=== PATIENT | male | born 1950 | race Caucasian/White ===

== ENCOUNTER 2024-06-27 09:33 | Outpatient (AMB) | payer MEDICARE, SELFPAY ==
--- NOTE | 2024-06-27 10:01 | HO.SPINEOV ---
Vital Signs 06/27/24 10:02 Height 5 ft 3 in Weight 148 lb BMI 26.2 Intake Visit Reasons: Low back pain. Intake Note: Ms. Schmitt is here today c/o low back pain. 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 She is a pleasant 73-year-old female who comes in today with a chief complaint of low back pain and difficulties with ambulation. She reports that 5 years ago she had surgery with Dr. Davidson at [facility] to address this but never had complete relief of symptoms. Her most recent MRI showed continued nerve compression at the fusion site and a broken screw at L5, alongside what sound like some older compression fractures, prompting a referral to neurosurgery by her PCP office. When describing her low back pain she reports that it is exactly the same as it has been (baseline) since she recovered from her surgery with Dr. Davidson. She reports that overall she got some mild relief from her back pain after surgery with Dr. Davidson, but overall was not satisfied with the amount of relief postoperatively. She states that she has no shooting pains down her lower extremities, and is primarily suffering from low back pain. When describing the pain she runs her hands across her low back. She reports that her pain is worse with standing and ambulation, and better with sitting or lying flat. She denies any numbness/tingling in her lower extremities. She denies any issues with bowel/bladder control. She has been taking occasional ibuprofen/Tylenol to help alleviate the pain, but states she is not taking any other prescription medications to help with the pain and at this time. She has been to physical therapy acutely right after her previous fusion surgery, but has not been back since. She did obtain cortisone injections prior to her fusion surgery, and has not attempted any since. She has been attempting to utilize [id number] medications including Tylenol/ibuprofen without significant relief of her symptoms. PMH: Type 2 diabetes, obstructive sleep apnea, hypothyroidism, hyperlipidemia, osteoporosis, peripheral neuropathy. Hx of L3-5 lumabr [address] Davidson[address] Social hx: The patient does not smoke, reports no substance use. Medications: Atorvastatin, calcium carbonate, vitamin D3, vaginal estrogen cream, vitamin B12, docusate, Humalog, glargine, levothyroxine. Allergies: Adhesive used on Dexcom 7 sensors Physical exam: The patient has 5/5 strength in her upper and lower extremities. She ambulates slowly without any assistive devices. She is able to get up onto the examination table with some difficulty. She has no significant sensational deficits on examination. Her reflexes are 1+ hypoactive in the left patella, and 2+ elsewhere. (-) bilateral straight leg raise, (-) Hightower's, (-) clonus. Imaging review: MRI of the lumbar spine shows severe degeneration of the lumbar spine. There is a notable degenerative levoscoliosis with the apex at L2. There is a healed compression fracture at L2. There is what appears to be a healed compression fracture at L5 with instrumentation noted. 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 Some notable bilateral foraminal stenosis at L5-S1. Impression: Pleasant 73-year-old female who comes in today for evaluation of longstanding low back pain which has continued despite attempted L3-5 lumbar fusion completed by [facility] neurosurgery. She asked several different issues occurring simultaneously in her lumbar spine. She has been appears to be an adjacent segment issue above the fusion construct at L2-3. She has a compression fracture that is healing at L2, which would make extension of fusion potentially problematic. Alongside this train of thought; she has osteoporosis which would make instrumentation very difficult, and put her at risk for pseudoarthrosis. She also has a degenerative levoscoliosis extending from the lumbar spine into the thoracic. This is less likely to be a major pain contributor for her. She also has a broken L5 screws noted on images obtained at her primary care office (I was not able to see this on her rayus imaging, and it is not mentioned in her MRI report, however this is something that would traditionally be difficult to identify on MRI due to metallic artifact). Unfortunately, I do not believe there is anything that we could offer Marion at this time to help with her well localized low back pain that has been persistent since her fusion surgery with [facility]. I do believe that she should be evaluated again by Dr. Davidson who need to make a decision on whether or not the broken instrumentation that he put in should be removed. Many times in the context of broken instrumentation 2 years after fusion surgery, the instrumentation does not need to be removed unless it is causing some kind of localized pain to that area. 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 Without improvement of her osteoporosis and would be very difficult to address the adjacent segment degeneration at L2-3. This patient would also benefit from a course of physical therapy. I extensively explained all this to the patient utilizing the spine models in office. At the end of this visit she was encouraged that she is welcome to come back to see us for subsequent follow-up in the future if she continues to worsen and begins treatment for her osteoporosis. Thank you for allowing us to care for your patient. The total time spent with this visit with this patient was 65 minutes reviewing history, physical exam, MRI imaging review, and implementation of treatment plan or further diagnostic testing Omari Zazueta MD,PhD [facility] Coding Level of Care Code New Pt Level 5 (50428) Diagnoses Degenerative scoliosis M41.50
[2024-06-27 10:02] VITALS: BMI 26.2
== END 2024-06-27 10:47 | disposition home or self-care (01) ==
LOC: HO.HNS 09:34
PROVIDERS: PCP Physician Assistant Surgical; Referring Provider Physician Assistant Surgical; Visit Provider Physician Assistant
DX: M54.50 Low back pain, unspecified (principal); M41.50 Other secondary scoliosis, site unspecified
CPT/HCPCS: 99205

== ENCOUNTER → 2024-06-27 09:33 | Outpatient (BNVA) | payer MEDICARE, SELFPAY | PROVIDERS: PCP Physician Assistant Surgical; Visit Provider Physician Assistant | DX: M54.50 Low back pain, unspecified (principal); M41.50 Other secondary scoliosis, site unspecified | CPT/HCPCS: 99202 ==

== ENCOUNTER 2024-07-22 10:02 | Emergency (ER) | payer MEDICARE, SELFPAY ==
[2024-07-22] VITALS (7 sets, daily range): BP systolic 117–143; BP diastolic 48–68; PULSE 85–103; RESP 12–16; TEMP 36.2–36.6; O2SAT 98–100; BMI 24.7
--- NOTE | ~2024-07-22 | CT_ITS ---
EXAMINATION: CT HEAD WITHOUT CONTRAST CLINICAL INFORMATION: Syncope. COMPARISON: None available. TECHNIQUE: Contiguous axial imaging was performed from the skull base to vertex without intravenous administration of contrast. This CT examination was performed using dose optimization techniques as appropriate, variously including the following: *Automated exposure control *Adjustment of mA and/or kV according to patient size (this includes techniques or standardized protocols for targeted exams where dose is matched to indication/reason for exam; i.e. extremities or head) *Use of iterative reconstruction technique FINDINGS: . There is no evidence of intracranial hemorrhage or extra-axial fluid collection. There is no mass effect, or edema. No CT evidence of acute territorial infarct. Ventricles, sulci, and cisterns are normal in size and configuration for patient age. No hydrocephalus. No midline shift. Negative hyperdense MCA sign. Negative insular ribbon sign. No significant white matter abnormalities. Normal pituitary. Mild atheromatous calcification of the bilateral carotid siphons and V4 segments vertebral arteries bilaterally. Globes and orbital contents image normally. No extracranial soft tissue abnormalities. The paranasal sinuses, mastoid air cells, and tympanic cavities are normally aerated. No suspicious bony abnormalities. There are no acute fractures evident. CT/CT head/brain wo IV con IMPRESSION: No acute intracranial abnormality. No fracture evident. Electronically signed by: Aric Castellanos MD 07/22/2024 12:42 PM EDT
--- NOTE | ~2024-07-22 | CT_ITS ---
EXAMINATION: CT ANGIOGRAM CHEST CLINICAL INFORMATION: Syncope, concern for PE. COMPARISON: None available. TECHNIQUE: Multiple axial images were obtained through the chest after the administration of 50 mL of Omnipaque 350 intravenous contrast. Extensive vascular post-processing including two-dimensional and three-dimensional reformatted images were created and reviewed on an independent workstation. This CT examination was performed using dose optimization techniques as appropriate, variously including the following: *Automated exposure control *Adjustment of mA and/or kV according to patient size (this includes techniques or standardized protocols for targeted exams where dose is matched to indication/reason for exam; i.e. extremities or head) *Use of iterative reconstruction technique FINDINGS: VASCULAR: There is no evidence of pulmonary embolus. Normal caliber main pulmonary artery. No right heart strain are reflux of contrast into the IVC. The aorta is normal in caliber and course. No acute aortic syndrome. There is mild atheromatous calcification. The heart size is normal. There is no pericardial effusion. Great vessels are patent with a mild stenosis suspected at the origin of the left subclavian artery. LUNGS: Lungs are clear bilaterally. There is mild dependent atelectasis. There are no consolidations or abnormal groundglass opacities. The small airways appear normal. The central airways are patent. No effusion or pneumothorax. No suspicious nodules. There are a few calcified granulomata present. MEDIASTINUM: No mass or adenopathy. Diminutive appearing thyroid. Mildly patulous appearing esophagus. AXILLA/CHEST WALL: No abnormal lymphadenopathy or mass. IMAGED UPPER ABDOMEN: No abnormalities. OSSEOUS STRUCTURES: There is a right convex superior thoracic scoliosis. There is a normal kyphosis. There are moderate spinal degenerative changes with associated osteopenia. There are scattered Schmorl's nodes within the endplates. Chronic compression deformity of T12. No lytic or blastic bone lesions. CT/CT angio chest PE protocol IMPRESSION: 1. No evidence of pulmonary embolus. No evidence of acute aortic syndrome. 2. Lungs are clear without evidence of active disease. No effusion or pneumothorax. 3. Additional ancillary findings as discussed in the body of the report. Electronically signed by: Aric Castellanos MD 07/22/2024 12:50 PM EDT
--- NOTE | 2024-07-22 10:17 | ECG_ITS ---
Test Reason : NEAR SYNCOPY Blood Pressure : */* mmHG Vent. Rate : 93 BPM Atrial Rate : 93 BPM P-R Int : 148 ms QRS Dur : 82 ms QT Int : 364 ms P-R-T Axes : 38 0 33 degrees QTcB Int : 452 ms Normal sinus rhythm Normal ECG No previous ECGs available Referred By: Generic ED Physician Electronically Signed By: SKYLAR PALACIO MD
--- NOTE | 2024-07-22 10:35 | ED_ITS ---
HPI - General Adult General Chief complaint: Syncope Stated complaint: WEAKNESS,SYNCOPAL,-FALL PER EMS Time Seen by Provider: 07/22/24 10:34 Source: patient, family (patient's ) and EMS Mode of arrival: EMS Limitations: no limitations History of Present Illness ED Provider: Saloni Lehman PA-C HPI narrative: Patient is a 73 year old assigned female at with a history of wisdom tooth extraction on 07/21/2024 and T1DM, presenting to the emergency department today after a syncopal episode. Patient states that she had a bowel movement this morning, felt fine, then felt the need to go again after sitting at the kitchen table and when she got up to go to the bathroom the room started to spin and she passed out. Patient's states that he watched it happen, caught the patient and brought her to the ground gently, where she was semi-consciousness for 1-2 minutes. Patient states that she then woke up, she made it to the bathroom and had another large bowel movement (normal color / consistency), and felt significantly better. Patient states that she now feels as though she is back to baseline. Patient states that a nearly identical episode happened when she was 22 years old and was also resolved by having a bowel movement. Patient denies any lightheadedness, abdominal pain, nausea, vomiting, fever, chills, blurry vision, double vision, loss of vision, chest pain, difficulty breathing, shortness of breath, back pain, night sweats, pain with urination, increased urinary frequency, increased urinary urgency, blood in her urine or stool, bowel incontinence, bladder incontinence, or any other complaints at this time. Patient states that she was started on Amoxicillin for the dental work and took her first dose last night and second dose this morning. Relieving factors: none Exacerbating factors: none Associated symptoms: syncope Treatments prior to arrival: none Related Data Allergies Allergy/AdvReac Type Severity Reaction Status Date / Time adhesive Allergy Rash Verified 07/22/24 10:25 Review of Systems 2 Constitutional: Constitutional: Reports no additional constitutional complaints, Denies chills, Denies fever(s) and Denies night sweats Eyes: Eyes: Reports no additional eye complaints, Denies blurry vision, Denies change in vision, Denies diplopia, Denies eye discharge, Denies loss of vision and Denies eye pain ENT: Denies dizziness Cardiovascular: Cardiovascular: Reports no additional cardiovascular complaints, Denies chest pain, Reports syncope, Denies lightheadedness, Denies Loss of Consciousness and Denies dyspnea Respiratory: Respiratory: Reports no additional respiratory complaints and Denies dyspnea Gastrointestinal: Gastrointestinal: Reports no additional gastrointestinal complaints, Denies abdominal pain, Denies melena, Denies hematochezia, Denies change in bowel habits and Denies change in stool character Musculoskeletal: Musculoskeletal: Reports no additional musculoskeletal complaints, Denies numbness and Denies tingling Neurologic: Denies dizziness, Reports syncope, Denies loss of vision, Denies numbness and Denies tingling Psychiatric: Psychiatric: Reports no additional psychiatric complaints Endocrine: Endocrine: Reports no additional endocrine complaints Hematologic/Lymphatic: Hematologic/Lymphatic: Reports no additional hematologic/lymphatic complaints Allergic/Immunologic: Allergic/Immunologic: Reports no additional allergic/immunologic complaints PMFSH Past Medical History Attestation statement: The following information was validated with the patient. (all information validated with the patient's ) Source: old records reviewed, obtained from family (patient's provided additional history and confirmed the history provided by the patient) and nursing notes reviewed Physical Exam ED Vital Signs: Vital Signs - 24 hr 07/22/24 10:20 07/22/24 11:51 07/22/24 11:51 Temperature 98 F Pulse Rate 92 Respiratory Rate 16 14 Blood Pressure 131/56 L 143/53 H Pulse Oximetry 100 100 Oxygen Delivery Method Room Air Room Air 07/22/24 12:27 07/22/24 13:27 07/22/24 13:29 Temperature 97.1 F Pulse Rate 96 93 92 Respiratory Rate 12 Blood Pressure 127/48 L 117/57 L 127/56 L Pulse Oximetry 98 Oxygen Delivery Method Room Air 07/22/24 13:29 07/22/24 13:52 Temperature 98 F Pulse Rate 98 98 Respiratory Rate 14 Blood Pressure 121/54 L 121/54 L Pulse Oximetry 98 Oxygen Delivery Method Room Air BMI result Body Mass Index 24.7 Const General: cooperative, no acute distress, alert and awake Nutritional Appearance: well nourished Orientation/consciousness: patient oriented x3 HENMT Head: Yes normal to inspection and Yes atraumatic Ears: hearing grossly normal bilaterally and external ears normal General nose exam: Normal external nose present, no nasal discharge noted and no epistaxis Face and sinus: Yes normal facial exam, No abrasion and No laceration Mouth: Normal oral and palatal mucosa present, no drooling and no muffled voice Eyes General: appearance normal, both eyes and all related structures Periorbital: periorbital findings normal Eyelids: Yes eyelids normal Conjunctivae: conjunctivae normal Pupils: Equal, round and reactive pupils present EOM: EOMs intact bilaterally Neck Neck: Yes normal visual inspection, Yes full ROM and Yes no lymphadenopathy Resp Effort & Inspection: normal respiratory effort and able to speak in complete sentences Neuro General: patient oriented x3, moves all extremities and CN's II-XI intact bilaterally Cranial nerves: Yes Equal, round and reactive pupils present Cognition (Neuro): normal cognition Extrem General: Yes normal to inspection, Yes full ROM and Yes capillary refill normal Psych Appearance: grossly normal Mental Status: mental status grossly normal Affect: normal affect Attitude: cooperative Thought process: Normal thought process present Thought content: Normal thought content present Insight: Good insight present (Psych) Medications Administered Discontinued Medications Generic Name Dose Route Start Last Admin Trade Name Williamq PRN Reason Stop Dose Admin Sodium Chloride 1,000 mls @ 999 mls/hr 07/22/24 11:00 07/22/24 13:25 Ns IV 07/22/24 12:00 Infused .Q1H1M SHANNON Infusion Iohexol 100 ml 07/22/24 12:30 07/22/24 12:30 Iohexol 350 Mg/Ml 100 Ml Infus..Btl IV 07/22/24 12:31 65 ml ONCE ONE Administration Medical Decision Making Medical Decision Making MDM Narrative: Patient is a 73 year old assigned female at with a history of wisdom tooth extraction on 07/21/2024 and T1DM, presenting to the emergency department today after a syncopal episode. Patient's physical exam was unremarkable. Patient's blood work showed a mild WBC elevation of 14 which is likely secondary to a stress reaction rather than infection given she is not febrile or tachycardic. Patient's urine showed no acute process. Patient's EKG was unremarkable. Patient's head CT and CT chest PE protocol showed no acute process. Patient's orthostatic vital signs were normal. Patient was able to ambulate without incident. Patient stated that she remains feeling normal and has no dizziness / lightheadedness. Patient's clinical presentation is most consistent with a vasovagal syncopal episode. I explained my physical exam findings as well as all test results to the patient and the patient's . I answered all questions asked by the patient and the patient's . I stressed the importance of the patient taking her medication as directed (either prescribed or as the over the counter packaging recommends). I stressed the importance of the patient following up with her primary care provider. I stressed the importance of the patient returning to the emergency department immediately if she were to have another syncopal episode, develop any dizziness, shortness of breath, difficulty breathing, chest pain, blurry vision, loss of vision, nausea, vomiting, abdominal pain, fever, chills, back pain, or any other complaints. Patient and the patient's verbalized agreement and understanding with this treatment plan and discharge. Differential Diagnosis Differential Diagnoses: The differential diagnosis associated with the presentation includes Syncope Vasovagal syncope Admission/Observation Consideration of admission/observation: Escalation of care including admission/observation considered Patient would have been admitted to the hospital had her work up had any findings where hospital admission was appropriate and her clinical presentation warranted hospital admission. Lab Data [facility] Lab Attestation statement: I reviewed the patient's lab results. My interpretation of these results are in the [facility] Rationale portion of this note. 07/22/24 11:16 07/22/24 11:16 Labs: Lab Results 07/22/24 07/22/24 07/22/24 Range/Units 11:11 11:16 12:09 WBC 14.0 H (4.8-10.8) X10*3/uL RBC 3.79 L (4.20-5.50) X10*6/uL Hgb 11.8 L (12.0-16.0) g/dl Hct 36.0 L (37.0-47.0) % MCV 95.0 (80.0-98.0) fL MCH 31.1 (27.0-33.0) pg MCHC 32.8 (31.0-35.0) g/dl RDW 12.0 (11.0-16.0) % Plt Count 408 H (160-400) X10*3/uL MPV 9.4 (9.4-12.3) fL Immature Gran % (Auto) 0.6 H (0.0-0.4) % Neut % (Auto) 76.8 H (45-73) % Lymph % (Auto) 12.5 L (20-40) % [place] % (Auto) 8.9 (2-11) % Eos % (Auto) 0.6 (0-4) % Baso % (Auto) 0.6 (0-2) % Lymph # (Auto) 1.7 (1.2-4.9) X10*3/uL [place] # (Auto) 1.2 (0.1-1.2) X10*3/uL Eos # (Auto) 0.1 (0.0-0.4) X10*3/uL Baso # (Auto) 0.1 (0.0-0.2) X10*3/uL Abs Immat Gran (auto) 0.09 H (0.00-0.03) X10*3/uL Absolute Neuts (auto) 10.7 H (2.0-8.3) x10*3/uL Absolute Nucleated RBC 0.000 (0.0-0.012) X10*3/uL Nucleated RBC % (auto) 0.0 (0.0-0.2) /100WBC PT 11.2 (10.9-12.4) SEC INR 1.0 (0.9-1.1) VBG pH 7.40 (7.32-7.43) VBG pCO2 45 mmHg VBG pO2 40 mmHg VBG HCO3 29 H (22-26) mmol/L VBG O2 Saturation 54.0 % VBG Base Excess 3.9 mmol/L Sodium 133 L (135-145) mmol/L Potassium 4.1 (3.3-5.1) mmol/L Chloride 97 (96-108) mmol/L Carbon Dioxide 28 (22-29) mmol/L Anion Gap 12 (12-20) BUN 15 (9-16) mg/dL Creatinine 0.76 (0.5-1.4) mg/dL Estim Creat Clear Calc 60.8 Estimated GFR > 60 Random Glucose 302 H (60-115) mg/dL Calcium 9.5 (8.4-10.2) mg/dL Magnesium 1.9 (1.6-2.6) mg/dL Total Bilirubin 0.6 (0.0-1.0) mg/dL AST 28 (5-31) U/L ALT 25 (0-31) U/L Alkaline Phosphatase 93 (39-117) U/L Troponin I High Sens 4.7 (<3.5-17.0) ng/L Total Protein 6.9 (6.5-8.0) g/dL Albumin 4.2 (3.5-5.0) g/dL Beta-Hydroxybutyrate 0.12 (0.02-0.27) mmol/L Hold Green Top See Note Urine Color Urine Appearance Urine pH (5.0-9.0) Ur Specific [place] (1.005-1.025) Urine Protein (Neg-Trace) mg/dL Urine Glucose (UA) (Negative) mg/dL Urine Ketones (Negative) mg/dL Urine Blood (Negative) Urine Nitrite (Negative) Ur Leukocyte Esterase (Negative) Urine RBC (0-2) /HPF Urine WBC (0-5) /HPF Ur Squamous Epith Cells (0-2) /HPF Urine Bacteria (None Seen) Hyaline Casts (0-2) /LPF Influenza Type A (PCR) NEGATIVE (Negative) Influenza Type B (PCR) NEGATIVE (Negative) RSV RNA Qual (PCR) NEGATIVE (Negative) SARS-CoV-2 RNA (RT-PCR) NEGATIVE (Negative) 07/22/24 Range/Units 12:40 WBC (4.8-10.8) X10*3/uL RBC (4.20-5.50) X10*6/uL Hgb (12.0-16.0) g/dl Hct (37.0-47.0) % MCV (80.0-98.0) fL MCH (27.0-33.0) pg MCHC (31.0-35.0) g/dl RDW (11.0-16.0) % Plt Count (160-400) X10*3/uL MPV (9.4-12.3) fL Immature Gran % (Auto) (0.0-0.4) % Neut % (Auto) (45-73) % Lymph % (Auto) (20-40) % [place] % (Auto) (2-11) % Eos % (Auto) (0-4) % Baso % (Auto) (0-2) % Lymph # (Auto) (1.2-4.9) X10*3/uL [place] # (Auto) (0.1-1.2) X10*3/uL Eos # (Auto) (0.0-0.4) X10*3/uL Baso # (Auto) (0.0-0.2) X10*3/uL Abs Immat Gran (auto) (0.00-0.03) X10*3/uL Absolute Neuts (auto) (2.0-8.3) x10*3/uL Absolute Nucleated RBC (0.0-0.012) X10*3/uL Nucleated RBC % (auto) (0.0-0.2) /100WBC PT (10.9-12.4) SEC INR (0.9-1.1) VBG pH (7.32-7.43) VBG pCO2 mmHg VBG pO2 mmHg VBG HCO3 (22-26) mmol/L VBG O2 Saturation % VBG Base Excess mmol/L Sodium (135-145) mmol/L Potassium (3.3-5.1) mmol/L Chloride (96-108) mmol/L Carbon Dioxide (22-29) mmol/L Anion Gap (12-20) BUN (9-16) mg/dL Creatinine (0.5-1.4) mg/dL Estim Creat Clear Calc Estimated GFR Random Glucose (60-115) mg/dL Calcium (8.4-10.2) mg/dL Magnesium (1.6-2.6) mg/dL Total Bilirubin (0.0-1.0) mg/dL AST (5-31) U/L ALT (0-31) U/L Alkaline Phosphatase (39-117) U/L Troponin I High Sens (<3.5-17.0) ng/L Total Protein (6.5-8.0) g/dL Albumin (3.5-5.0) g/dL Beta-Hydroxybutyrate (0.02-0.27) mmol/L Hold Green Top Urine Color Yellow Urine Appearance Clear Urine pH 6.5 (5.0-9.0) Ur Specific [place] 1.025 (1.005-1.025) Urine Protein Negative (Neg-Trace) mg/dL Urine Glucose (UA) >=1000 H (Negative) mg/dL Urine Ketones Negative (Negative) mg/dL Urine Blood Negative (Negative) Urine Nitrite Negative (Negative) Ur Leukocyte Esterase Negative (Negative) Urine RBC 0-2 (0-2) /HPF Urine WBC 0-5 (0-5) /HPF Ur Squamous Epith Cells 0-2 (0-2) /HPF Urine Bacteria None Seen (None Seen) Hyaline Casts 0-2 (0-2) /LPF Influenza Type A (PCR) (Negative) Influenza Type B (PCR) (Negative) RSV RNA Qual (PCR) (Negative) SARS-CoV-2 RNA (RT-PCR) (Negative) Independent Interpretation I performed an independent interpretation of an: EKG and CT Scan (CT head / CT PE protocol of the chest) Interpretation: My interpretation is in agreement with the radiologist's impression of these imaging studies. L Report Number: [id number]: Total DLP = 608.00 mGy-cm EXAMINATION: CT HEAD WITHOUT CONTRAST CLINICAL INFORMATION: Syncope. COMPARISON: None available. TECHNIQUE: Contiguous axial imaging was performed from the skull base to vertex without intravenous administration of contrast. This CT examination was performed using dose optimization techniques as appropriate, variously including the following: *Automated exposure control *Adjustment of mA and/or kV according to patient size (this includes techniques or standardized protocols for targeted exams where dose is matched to indication/reason for exam; i.e. extremities or head) *Use of iterative reconstruction technique FINDINGS: There is no evidence of intracranial hemorrhage or extra-axial fluid collection. There is no mass effect, or edema. No CT evidence of acute territorial infarct. Ventricles, sulci, and cisterns are normal in size and configuration for patient age. No hydrocephalus. No midline shift. Negative hyperdense MCA sign. Negative insular ribbon sign. No significant white matter abnormalities. Normal pituitary. Mild atheromatous calcification of the bilateral carotid siphons and V4 segments vertebral arteries bilaterally. Globes and orbital contents image normally. No extracranial soft tissue abnormalities. The paranasal sinuses, mastoid air cells, and tympanic cavities are normally aerated. No suspicious bony abnormalities. There are no acute fractures evident. CT/CT head/brain wo IV con IMPRESSION: No acute intracranial abnormality. No fracture evident. Electronically signed by: Aric Castellanos MD 07/22/2024 12:42 PM EDT Dictated By: Aric Castellanos MD Signed By: Electronically signed by Aric Castellanos MD 07/22/24 1242 Report Number: [id number]: Total DLP = 334.00 mGy-cm EXAMINATION: CT ANGIOGRAM CHEST CLINICAL INFORMATION: Syncope, concern for PE. COMPARISON: None available. TECHNIQUE: Multiple axial images were obtained through the chest after the administration of 50 mL of Omnipaque 350 intravenous contrast. Extensive vascular post-processing including two-dimensional and three- dimensional reformatted images were created and reviewed on an independent workstation. This CT examination was performed using dose optimization techniques as appropriate, variously including the following: *Automated exposure control *Adjustment of mA and/or kV according to patient size (this includes techniques or standardized protocols for targeted exams where dose is matched to indication/reason for exam; i.e. extremities or head) *Use of iterative reconstruction technique FINDINGS: VASCULAR: There is no evidence of pulmonary embolus. Normal caliber main pulmonary artery. No right heart strain are reflux of contrast into the IVC. The aorta is normal in caliber and course. No acute aortic syndrome. There is mild atheromatous calcification. The heart size is normal. There is no pericardial effusion. Great vessels are patent with a mild stenosis suspected at the origin of the left subclavian artery. LUNGS: Lungs are clear bilaterally. There is mild dependent atelectasis. There are no consolidations or abnormal groundglass opacities. The small airways appear normal. The central airways are patent. No effusion or pneumothorax. No suspicious nodules. There are a few calcified granulomata present. MEDIASTINUM: No mass or adenopathy. Diminutive appearing thyroid. Mildly patulous appearing esophagus. AXILLA/CHEST WALL: No abnormal lymphadenopathy or mass. IMAGED UPPER ABDOMEN: No abnormalities. OSSEOUS STRUCTURES: There is a right convex superior thoracic scoliosis. There is a normal kyphosis. There are moderate spinal degenerative changes with associated osteopenia. There are scattered Schmorl's nodes within the endplates. Chronic compression deformity of T12. No lytic or blastic bone lesions. CT/CT angio chest PE protocol IMPRESSION: 1. No evidence of pulmonary embolus. No evidence of acute aortic syndrome. 2. Lungs are clear without evidence of active disease. No effusion or pneumothorax. 3. Additional ancillary findings as discussed in the body of the report. Electronically signed by: Aric Castellanos MD 07/22/2024 12:50 PM EDT Dictated By: Aric Castellanos MD Signed By: Electronically signed by Aric Castellanos MD 07/22/24 1250 I independently interpreted this EKG and am in agreement with the below findings: Vent. Rate: 93 BPM Atrial Rate: 93 BPM P-R Int: 148 ms QRS Dur: 82 ms QT Int: 364 ms P-R-T Axes: 38 0 33 degrees QTcB Int: 452 ms Normal sinus rhythm Normal ECG No previous ECGs available DD/ 1056 Radiology Impression Discussion of test interpretation with radiology: I have reviewed the radiologist's reading. Independent Historian Clinical information obtained from an independent historian. History obtained from or confirmed by: Spouse (Patient's provided additional history and confirmed the history provided by the patient.) and EMS (EMS provided additional history and confirmed the history provided by the patient.) Chronic Conditions Patient?s care impacted by: Diabetes Critical Care Time Critical Care Time Critical Care Time: Yes Total Critical Care Time: 38 Attestation: I spent 38 minutes of Critical Care Time with this patient. This does not include time spent on separately reported billable procedures. Discharge Plan Discharge Clinical Impression: Syncope, vasovagal Patient Disposition: Home, Self-Care Instructions: Syncope (DC) Additional Instructions: Please see the additional handout I have provided regarding vasovagal syncope. I believe this is the type of syncope you experienced today. Your work up today was reassuring there is no other emerget cause for your episode. Your blood work, imaging, and EKG were all normal. Follow up with your primary care provider. Continue your antibiotic as prescribed from your dentist. Return to the emergency department immediately if your symptoms worsen or if you develop any numbness, tingling, dizziness, shortness of breath, difficulty breathing, chest pain, blurry vision, loss of vision, nausea, vomiting, abdominal pain, fever, chills, back pain, or any other complaints. Please see the information below about our Patient Portal. If you are not yet enrolled in the [facility] Patient Portal, you will receive an enrollment email invitation following your visit to any [facility] setting. You may also self-enroll in the Patient Portal by visiting our website: [email or web address] The following information is required to access the Patient Portal: - Your [facility] Medical Record Number - Your personal home email address (must match what is in your electronic medical record, Registration staff can assist with this) - Name - Date of Capabilities of the Patient Portal: - Message some providers - View upcoming appointments - Access your health summary, medical history, and visit history - View current conditions and allergies - View procedure and lab results - View your medications, including guidelines, side effects, and precautions - Complete pre-appointment questionnaires requested by your provider - Ready summary reports of your office visits and procedures To access the Patient Portal Mobile [employer], follow these directions: - Search [employer] in the [employer] Store or [employer] Store - Download the Ranjan - Search for [facility] - Enter your login/password Referrals: Rio Helms PA-C [Primary Care Provider] - Interventions: ED Discharge Assessment Last Done: 07/22/24 13:52 Discharge Date/Time: 07/22/24 13:53 Print Language: Cook Islander
[2024-07-22 11:35] LABS: MANUAL DIFF FLAG NO
[2024-07-22 11:37] LABS: Basophils Absolute Auto 0.1 X10*3/uL (0.0-0.2); Basophils Percent Auto 0.6 % (0-2); Eosinophils Absolute Auto 0.1 X10*3/uL (0.0-0.4); Eosinophils Percent Auto 0.6 % (0-4); Hemoglobin 11.8 g/dl (12.0-16.0); Imm Gran Abs Auto 0.09 X10*3/uL (0.00-0.03); Imm Gran Pct Auto 0.6 % (0.0-0.4); Lymphocytes Absolute Auto 1.7 X10*3/uL (1.2-4.9); Lymphocytes Percent Auto 12.5 % (20-40); Mean Corpuscular HGB Conc 32.8 g/dl (31.0-35.0); Mean Corpuscular Hemoglobin 31.1 pg (27.0-33.0); Mean Platelet Volume 9.4 fL (9.4-12.3); Monocytes Absolute Auto 1.2 X10*3/uL (0.1-1.2); Monocytes Percent Auto 8.9 % (2-11); Neutrophils Absolute Auto 10.7 x10*3/uL (2.0-8.3); Neutrophils Percent Auto 76.8 % (45-73); Platelet Count 408 X10*3/uL (160-400); Red Blood Count 3.79 X10*6/uL (4.20-5.50)
[2024-07-22 11:44] LABS: Prothrombin Time 11.2 SEC (10.9-12.4)
[2024-07-22] MEDS: 0.9 % Sodium Chloride 1,000 ML 999 ML IV (11:49)
[2024-07-22 11:50] LABS: Alanine Aminotransferase 25 U/L (0-31); Albumin Level 4.2 g/dL (3.5-5.0); Alkaline Phosphatase 93 U/L (39-117); Anion Gap 12 (12-20); Aspartate Amino Transferase 28 U/L (5-31); Bilirubin Total 0.6 mg/dL (0.0-1.0); Blood Urea Nitrogen 15 mg/dL (9-16); Calcium 9.5 mg/dL (8.4-10.2); Carbon Dioxide 28 mmol/L (22-29); Chloride 97 mmol/L (96-108); Creatinine Clr Calc Pharmacy 60.8; Estimated Glomerular Filt Rate > 60; Glucose Random 302 mg/dL (60-115); Magnesium 1.9 mg/dL (1.6-2.6); Potassium 4.1 mmol/L (3.3-5.1); Sodium 133 mmol/L (135-145); Total Protein 6.9 g/dL (6.5-8.0)
[2024-07-22 11:51] LABS: Beta-Hydroxybutyrate 0.12 mmol/L (0.02-0.27)
[2024-07-22 11:59] LABS: Troponin-I High Sensitivity 4.7 ng/L (<3.5-17.0)
[2024-07-22 12:13] LABS: Venous Blood Gas Refer to POC result
[2024-07-22 12:14] LABS: VBG Base Excess 3.9 mmol/L; VBG HCO3 29 mmol/L (22-26); VBG pCO2 45 mmHg; VBG pO2 40 mmHg
--- NOTE | 2024-07-22 12:15 | MHC.EDTECH ---
pt ambulated to bathroom independently with a steady gait. UA was collected and sent to lab
[2024-07-22 12:18] LABS: Influenza A PCR NEGATIVE (Negative); Influenza B PCR NEGATIVE (Negative); Resp Syncy Virus RNA Qual PCR NEGATIVE (Negative); SARS COV2 PCR INHOUSE NEGATIVE (Negative)
[2024-07-22] MEDS: iohexoL 350 MG/ML 100 ML INFUS..BTL IV (12:30)
[2024-07-22 12:46] LABS: Appearance Urine Clear; Color Urine Yellow; Glucose Urine UA >=1000 mg/dL (Negative); Leukocyte Esterase Urine Negative (Negative); Nitrite Urine Negative (Negative); PH 6.5 (5.0-9.0); Specific Gravity - Urine 1.025 (1.005-1.025); UMIC TRIGGER UACC YES; Urine Blood Negative (Negative); Urine Ketones Negative (Negative); Urine Protein Negative (Neg-Trace)
[2024-07-22 12:51] LABS: Bacteria Urine None Seen (None Seen); Hyaline Casts Urine 0-2 /LPF (0-2); RBC Urine 0-2 /HPF (0-2); Squamous Epithelial Cell Urine 0-2 /HPF (0-2); WBC Urine 0-5 /HPF (0-5)
== END 2024-07-22 13:53 | disposition home or self-care (01) ==
PROVIDERS: Physician Assistant Medical; Emergency Provider Emergency Medicine Emergency Medical Services; PCP Physician Assistant Surgical
DX: R55 Syncope and collapse (principal); E10.9 Type 1 diabetes mellitus without complications; Z79.899 Other long term (current) drug therapy; Z03.818 Encounter for observation for suspected exposure to other biological agents ruled out
CPT/HCPCS: 0241U; 36415; 70450; 71275; 80053; 81001; 82010; 82803; 83735; 84484; 85025; 85610; 93005; 96360; 96361; 99285; Q9967

== ENCOUNTER → 2024-07-22 10:17 | Outpatient (BNV) | payer MEDICARE, SELFPAY | PROVIDERS: Emergency Provider Emergency Medicine Emergency Medical Services; PCP Physician Assistant Surgical; Visit Provider Internal Medicine Cardiovascular Disease | DX: R55 Syncope and collapse (principal) | CPT/HCPCS: 93010 ==

== ENCOUNTER → 2024-07-22 10:49 | Outpatient (BNV) | payer MEDICARE, SELFPAY | PROVIDERS: PCP Physician Assistant Surgical; Visit Provider Radiology Diagnostic Radiology | DX: R55 Syncope and collapse (principal) | CPT/HCPCS: 70450; 71275 ==